=== PATIENT | female | born 1945 | race Caucasian/White ===

== ENCOUNTER 2019-04-02 07:26 | Day surgery (SDC) | payer MEDICARE, OTHER ==
[~2019-04-02] VITALS: Ht 165.1 cm; Wt 79.1 kg
[~2019-04-02 07:26] MED LIST: CONEST.3; Cardizem CD 12120 MG PO; FAMO20 PO; LEVSOD25; RXHYOS.125 PO; RXPROM25 PO; Tamiflu75 MG PO
[2019-04-02] MEDS ORDERED: METO25ER PO (08:14)
[2019-04-02] MEDS ORDERED: LANOXIN125 MCG PO (08:15)
[2019-04-02] MEDS ORDERED: ELIQUIS2.5 MG PO (08:15)
== END 2019-04-02 09:29 | disposition home or self-care (01) ==
LOC: ORSCSDS 07:26
PROVIDERS: Ophthalmology
PROC: 08RJ3JZ Replacement of Right Lens with Synthetic Substitute, Percutaneous Approach (ICD-10-PCS; principal; 2019-04-02 09:00)
DX: H25.11 Age-related nuclear cataract, right eye (principal); I48.91 Unspecified atrial fibrillation; Z79.01 Long term (current) use of anticoagulants; F17.210 Nicotine dependence, cigarettes, uncomplicated; Z79.899 Other long term (current) drug therapy
CPT/HCPCS: J2001; J2250; J3010; J3301; J7120; V2632

== ENCOUNTER 2019-07-09 06:27 | Day surgery (SDC) | payer OTHER ==
[~2019-07-09] VITALS: Ht 165.1 cm; Wt 74.2 kg
[~2019-07-09 06:27] MED LIST changes: +ELIQUIS2.5 MG PO; +LANOXIN125 MCG PO; +METO25ER PO
[2019-07-09] MEDS ORDERED: ALPR.25 PO (07:10)
--- NOTE | 2019-07-09 07:12 | NUR ---
07/09/19 0712 David Dennis CALL LIGHT WITHIN REACH
== END 2019-07-09 08:40 | disposition home or self-care (01) ==
LOC: ORSCSDS 06:27
PROVIDERS: Ophthalmology
PROC: 08RK3JZ Replacement of Left Lens with Synthetic Substitute, Percutaneous Approach (ICD-10-PCS; principal; 2019-07-09 08:00)
DX: H25.12 Age-related nuclear cataract, left eye (principal); I48.91 Unspecified atrial fibrillation; Z79.01 Long term (current) use of anticoagulants; F17.210 Nicotine dependence, cigarettes, uncomplicated; Z79.899 Other long term (current) drug therapy
CPT/HCPCS: J2001; J2250; J3010; J3301; J7040; V2632

== ENCOUNTER 2021-03-16 10:17 | Day surgery (SDC) | payer OTHER ==
[~2021-03-16] VITALS: Ht 167.6 cm; Wt 75.4 kg
[~2021-03-16 10:17] MED LIST changes: +ALPR.25 PO; +METO50ER PO
[2021-03-16] MEDS ORDERED: ELIQUIS2.5 MG PO (11:23)
== END 2021-03-16 12:44 | disposition home or self-care (01) ==
LOC: ORSCSDS 10:17
PROVIDERS: Internal Medicine Gastroenterology
PROC: 0DBK8ZX Excision of Ascending Colon, Via Natural or Artificial Opening Endoscopic, Diagnostic (ICD-10-PCS; principal; 2021-03-16 11:30)
PROC: 0DB68ZX Excision of Stomach, Via Natural or Artificial Opening Endoscopic, Diagnostic (ICD-10-PCS; principal; 2021-03-16 11:30)
DX: K62.5 Hemorrhage of anus and rectum (principal); R10.13 Epigastric pain; D12.2 Benign neoplasm of ascending colon; K29.80 Duodenitis without bleeding; K57.30 Diverticulosis of large intestine without perforation or abscess without bleeding; K44.9 Diaphragmatic hernia without obstruction or gangrene; K63.89 Other specified diseases of intestine; K64.8 Other hemorrhoids; K20.90 Esophagitis, unspecified without bleeding; K59.04 Chronic idiopathic constipation; B96.81 Helicobacter pylori [H. pylori] as the cause of diseases classified elsewhere; D62 Acute posthemorrhagic anemia; F17.210 Nicotine dependence, cigarettes, uncomplicated; Z79.899 Other long term (current) drug therapy
CPT/HCPCS: 88305; 88342; J2704; J7120